=== PATIENT | male | born 1965 | race African-American/Black ===

== ENCOUNTER 2018-01-04 01:02 | Emergency (ER) | payer SELFPAY ==
--- NOTE | 2018-01-04 03:21 | PDOC ---
Attending Attestation - HPI HPI: 01/04/18 04:22 The patient is a 52 year old male, with no significant past medical history, who presents to the emergency department with headache, neck pain and stiffness today while driving. He states he developed difficulty moving his neck which progressed to slightly blurred vision and a diffuse posterior headache, He states the headache comes and goes. He states his neck pain feels like intermittent spasms which makes his pain jump from a 3/10 to a 10/10. He also reports momentary facial numbness and tingling. The patient denies chest pain, shortness of breath, and dizziness. The patient denies fever, chills, nausea, vomit, diarrhea and constipation. The patient denies dysuria, frequency, urgency and hematuria. Allergies: NKDA - Physicial Exam PE: 01/04/18 04:23 GENERAL: The patient is in no acute distress. HEAD: Normal with no signs of trauma. EYES: PERRLA, EOMI, sclera anicteric, conjunctiva clear. ENT: Ears normal, nares patent, oropharynx clear without exudates. Moist mucous membranes. NECK: Normal range of motion, supple without lymphadenopathy, JVD, or masses. LUNGS: Breath sounds equal, clear to auscultation bilaterally. No wheezes, and no crackles. HEART:Regular rate and rhythm, normal S1 and S2 without murmur, rub or gallop. ABDOMEN: Soft, nontender, normoactive bowel sounds. No guarding, no rebound. No masses palpable. EXTREMITIES: Normal range of motion, no edema. No clubbing or cyanosis. No erythema, or tenderness. NEUROLOGICAL: Cranial nerves II through XII grossly intact. Normal speech. No focal neurological deficits. MUSCULOSKELETAL: (+) limited ROM of neck secondary to pain. PAraspinal cervical muscle ttp. no CVA tenderness SKIN: Warm, Dry, normal turgor, no rashes or lesions noted. - Medical Decision Making 01/04/18 04:24 Documentation prepared by Dolores Jerez, acting as medical care manager for Rita Leger MD <Dolores Jerez - Last Filed: 01/04/18 04:22> - Resident Resident Name: Kd Coombs - ED Attending Attestation I have performed the following: I have examined & evaluated the patient, The case was reviewed & discussed with the resident, I agree w/resident's findings & plan, Exceptions are as noted - Medical Decision Making 52 yo m presenting to the ER with what appears to be muscular neck pain no trauma no rigidity or fever to suggest meningitis pain present since this afternoon Vertebral artery dissection possible Likely muscle strain CT performed and demonstrate no pathology Labs wnl Pt improved with robaxin Will discharge to home Follow up with pmd Return to the ER immediately for any concerns or complaints <Rita Leger - Last Filed: 01/05/18 05:26>
--- NOTE | 2018-01-04 03:24 | PDOC ---
History of Present Illness - General History Source: Patient Exam Limitations: No Limitations <Dolores Jerez - Last Filed: 01/04/18 04:21> - History of Present Illness Initial Comments: 01/04/18 04:35 The patient is a 52 year old male with no significant PMH who presents for evaluation of headache and neck pain. The patient notes onset of left sided neck pain with radiation into his head with progression to a left sided headache earlier today prompting his presentation to the ED for further evaluation. He noted some left facial tingling as well, but otherwise denies fevers, chills, SOB, chest pain, nausea, vomiting, abdominal pain, weakness, or changes with urination or bowel movements. <Kd Coombs - Last Filed: 01/06/18 09:02> - General Stated Complaint: DIZZINESS/HEADACHE Time Seen by Provider: 01/04/18 02:47 Past History <Dolores Jerez - Last Filed: 01/04/18 04:21> <Kd Coombs - Last Filed: 01/06/18 09:02> - Past Medical History Allergies/Adverse Reactions: Allergies Allergy/AdvReac Type Severity Reaction Status Date / Time No Known Allergies Allergy Verified 01/04/18 03:30 Home Medications: Ambulatory Orders Methocarbamol [Robaxin -] 500 mg PO BID #14 tablet 01/04/18 Review of Systems - Review of Systems Able to Perform ROS?: Yes <Dolores Jerez - Last Filed: 01/04/18 04:21> - Review of Systems Comments:: 01/04/18 04:38 Constitutional: No fevers, chills, fatigue, malaise HEENT: Neck pain. No Rhinorrhea, nasal congestion, visual changes Cardiovascular: No chest pain, syncope, palpitations, lightheadedness Respiratory: No Cough, SOB, Hemoptysis, Gastrointestinal: No Abdominal pain, Nausea, Vomiting, Constipation, Diarrhea, Melena Genitourinary: No Dysuria, Frequency, Urgency, Hesitancy, Hematuria, Flank pain Musculoskeletal: No Myalgia, arthralgia Skin: No rashes, itching, bruising, pallor Neurologic: Headache, tingling, No Dizziness, Weakness, Psychiatric: No Hallucinations. No SI or HI <Kd Coombs - Last Filed: 01/06/18 09:02> *Physical Exam - Vital Signs Last Vital Signs Temp Pulse Resp BP Pulse Ox 97.5 F L 71 19 155/90 97 01/04/18 01:15 01/04/18 01:15 01/04/18 01:15 01/04/18 01:15 01/04/18 01:15 <Dolores Jerez - Last Filed: 01/04/18 04:21> - Physical Exam Comments: 01/04/18 04:38 General Appearance: Nourished. No Apparent Distress HEENT: EOMI, JASON. No Pharyngeal Erythema, Tonsillar Exudate, Tonsillar Erythema Neck: Reproducible tenderness to palpation along the left parasinal neck muscles. No Cervical Lymphadenopathy Respiratory/Chest: Lungs Clear, Normal Breath Sounds. No Crackles, Rales, Rhonchi, Wheezing Cardiovascular: Regular Rhythm, Regular Rate. No Murmur, Gallops, Rubs Gastrointestinal/Abdominal: Normal Bowel Sounds, Soft. No Guarding, Rebound, Tenderness Musculoskeletal: No CVA Tenderness Extremity: Normal Capillary Refill Integumentary: Normal Color, Dry, Warm Neurologic: environmental lead II-XII NML intact, Fully Oriented, Alert, Normal Mood/Affect, Normal Response, Motor Strength 5/5. Normal Finger to Nose and Heel to [place] <Kd Coombs - Last Filed: 01/06/18 09:02> ED Treatment Course - LABORATORY CBC & Chemistry Diagram: 01/04/18 04:30 01/04/18 04:30 <Kd Coombs - Last Filed: 01/06/18 09:02> Medical Decision Making - Medical Decision Making 01/04/18 04:39 The patient is a 52 year old male with no significant PMH who presents for evaluation of headache and neck pain. Differential includes but is not limited to: Musculoskeletal, Migraine, Vetebral dissection, infectious, metabolic derangement. Given the patient's history and physical exam, we will obtain a cbc, cmp, head and neck ct with and without iv contrast to evaluate further. We will treat in the meantime with iv fluids, iv tylenol, and robaxin and continue to monitor and reassess while here in the ED. 01/04/18 07:01 CBC, cmp are unremarkable. Head and neck CT scans are unremarkable as preliminarily read by our subcontracts manager radiologist. The patient reports improvement in his symptoms. We are comfortable discharging the patient home with neurology and primary care provider follow up. We discussed the results, plan, and return precautions with the patient who voiced understanding and is agreeable with the plan. <Kd Coombs - Last Filed: 01/06/18 09:02> *DC/Admit/Observation/Transfer <Dolores Jerez - Last Filed: 01/04/18 04:21> - Discharge Dispostion Decision to Admit order: No <Kd Coombs - Last Filed: 01/06/18 09:02> Diagnosis at time of Disposition: Headache Qualifiers: Headache type: unspecified Headache chronicity pattern: unspecified pattern Intractability: not intractable Qualified Code(s): R51 - Headache - Discharge Dispostion Disposition: HOME Condition at time of disposition: Fair - Prescriptions Prescriptions: Methocarbamol [Robaxin -] 500 mg PO BID #14 tablet - Referrals Referrals: Adele Honeycutt MD [Primary Care Provider] - Stiven Meyer DO [Staff Physician] - - Patient Instructions Printed Discharge Instructions: DI for Headache Additional Instructions: Please return to the ER if you experience concerning or worsening symptoms including worsening headache or weakness. Your lab results and CT scans were normal here in the ER. Please call to schedule a follow up appointment with our neurology specialist within 2-3 days to discuss your ER visit and further management of your symptoms. - Post Discharge Activity
[2018-01-04 03:30] VITALS: BP 155/90; PULSE 71; TEMP 97.5; BMI 28.3
[2018-01-04] MEDS ORDERED: METHOCARBAMOL 500 MG TABLET PO ONE (03:40)
[2018-01-04] MEDS ORDERED: ACETAMINOPHEN 1000 MG/100 ML VIAL (NON FORMULARY) IVPB ONE (03:40)
[2018-01-04] MEDS ORDERED: SODIUM CHLORIDE 1,000 ML IV STA (03:40)
[2018-01-04] MEDS ORDERED: ACETAMINOPHEN INJECTION 100 ML IVPB ONE (04:21)
[2018-01-04] MEDS ORDERED: METHOCARBAMOL 500 MG TABLET ONE (04:22)
[2018-01-04 04:39] LABS: EOS % 0.1 % (0-4.5); HEMATOCRIT 42.2 % (35.4-49); HEMOGLOBIN 14.3 GM/dL (11.7-16.9); LYMPH % 19.8 % (8-40); MCH 29.7 pg (25.7-33.7); MEAN CELL VOLUME 87.4 fl (80-96); MEAN PLT VOLUME 8.7 fl (7.5-11.1); MONO % 5.9 % (3.8-10.2); NEUT % 73.2 % (42.8-82.8); PLATELET COUNT 216 K/MM3 (134-434); RBC 4.82 M/mm3 (4.00-5.60); RDW 13.7 % (11.9-15.9); WHITE BLOOD COUNT 6.1 K/mm3 (4.0-10.0)
[2018-01-04 05:05] LABS: ALBUMIN 3.8 g/dl (3.4-5.0); ANION GAP 7 MMOL/L (8-16); BILIRUBIN,TOTAL 0.2 mg/dL (0.2-1.0); BLOOD UREA NITROGEN 9 mg/dL (7-18); CALCIUM 8.3 mg/dL (8.5-10.1); CHLORIDE 105 mmol/L (98-107); CO2 29 mmol/L (21-32); CREATININE 0.9 mg/dL (0.7-1.3); GLUCOSE,RANDOM 109 mg/dL (74-106); SGPT/ALT 36 U/L (12-78); SODIUM 141 mmol/L (136-145); TOT PROT 7.5 g/dl (6.4-8.2)
[2018-01-04 05:06] LABS: ALK PHOS 96 U/L (45-117)
[2018-01-04 05:19] LABS: POTASSIUM 3.7 mmol/L (3.5-5.1); SGOT/AST 26 U/L (15-37)
== END 2018-01-04 07:30 | disposition home or self-care (01) ==
LOC: JER 01:02
PROC: 3E033NZ Introduction of Analgesics, Hypnotics, Sedatives into Peripheral Vein, Percutaneous Approach (ICD-10-PCS; principal; 2018-01-04)
PROC: 3E0337Z Introduction of Electrolytic and Water Balance Substance into Peripheral Vein, Percutaneous Approach (ICD-10-PCS; 2018-01-04)
DX: R51 Headache (principal)
CPT/HCPCS: 36415; 70450-TC; 70496-TC; 70498-TC; 80053; 85025; 99282-25; J0131; J7030

== ENCOUNTER 2021-08-28 00:03 | Emergency (ER) | payer OTHER ==
[2021-08-28 00:29] VITALS: BP 152/90; PULSE 75; TEMP 97.6; BMI 29.9
== END 2021-08-28 01:59 | disposition home or self-care (01) ==
LOC: JER 00:03
DX: M79.652 Pain in left thigh (principal); M25.562 Pain in left knee; V49.40XA Driver injured in collision with unspecified motor vehicles in traffic accident, initial encounter
CPT/HCPCS: 72170-TC-FY; 73502-TC-LT-FY; 73552-TC-LT-FY; 73560-TC-LT-FY; 73560-TC-RT-FY; 99284-25

== ENCOUNTER 2021-09-08 17:40 | Emergency (ER) | payer OTHER ==
[2021-09-08 18:01] VITALS: TEMP 97.9; BMI 28.3
[2021-09-08 18:26] VITALS: BP 117/83; PULSE 86
[2021-09-08] MEDS ORDERED: SODIUM CHLORIDE 0.9% 500 ML INFUS.BAG IV ONE ×2 (19:33→20:41)
[2021-09-08 19:50] LABS: BASO % 0.3 % (0-2.0); HEMATOCRIT 46.7 % (35.4-49); HEMOGLOBIN 15.7 GM/dL (11.7-16.9); LYMPH % 19.4 % (8-40); MCH 29.5 pg (25.7-33.7); MCHC 33.7 g/dl (32.0-35.9); MEAN CELL VOLUME 87.5 fl (80-96); MEAN PLT VOLUME 9.4 fl (7.5-11.1); MONO % 16.6 % (3.8-10.2); NEUT % 63.7 % (42.8-82.8); PLATELET COUNT 244 10^3/uL (134-434); RBC 5.34 M/mm3 (4.00-5.60); RDW 14.8 % (11.9-15.9); WHITE BLOOD COUNT 8.4 K/mm3 (4.0-10.0)
[2021-09-08 20:10] LABS: CALCIUM 9.2 mg/dL (8.5-10.1)
[2021-09-08 20:11] LABS: ALBUMIN 3.5 g/dl (3.4-5.0)
[2021-09-08 20:16] LABS: BILIRUBIN,TOTAL 0.4 mg/dL (0.2-1); TOT PROT 7.3 g/dl (6.4-8.2)
[2021-09-08 20:18] LABS: CREATININE 1.7 mg/dL (0.55-1.3)
[2021-09-08] MEDS ORDERED: POTASSIUM CHLORIDE TABS 20 MEQ TABLET.ER (FP) PO ONE ×2 (20:41→20:42)
[2021-09-08 23:40] LABS: CALCIUM 7.9 mg/dL (8.5-10.1)
[2021-09-08 23:41] LABS: BLOOD UREA NITROGEN 32.1 mg/dL (7-18)
[2021-09-08 23:44] LABS: CREATININE 1.1 mg/dL (0.55-1.3)
== END 2021-09-09 00:08 | disposition home or self-care (01) ==
LOC: JER 17:40
DX: R19.7 Diarrhea, unspecified (principal)
CPT/HCPCS: 36415; 80048; 80053; 82272; 85025; 99284-25

== ENCOUNTER 2021-09-25 22:01 | Inpatient (IN) | payer OTHER ==
[2021-09-25 22:09] VITALS: BMI 27.4
[2021-09-25 23:03] LABS: HEMOGLOBIN 11.3 GM/dL (11.7-16.9); MCH 29.2 pg (25.7-33.7); MCHC 33.3 g/dl (32.0-35.9); MEAN CELL VOLUME 87.8 fl (80-96); MEAN PLT VOLUME 7.3 fl (7.5-11.1); PLATELET COUNT 402 10^3/uL (134-434); RBC 3.87 M/mm3 (4.00-5.60); RDW 13.7 % (11.9-15.9); WHITE BLOOD COUNT 6.7 K/mm3 (4.0-10.0)
[2021-09-25 23:24] LABS: CALCIUM 8.6 mg/dL (8.5-10.1)
[2021-09-25 23:25] LABS: BLOOD UREA NITROGEN 11.2 mg/dL (7-18)
[2021-09-25 23:28] LABS: CREATININE 1.1 mg/dL (0.55-1.3); URIC ACID 3.8 mg/dL (2.6-7.2)
[2021-09-26] MEDS ORDERED: ACETAMINOPHEN 325 MG TABLET (FP) PO PRN (02:59)
[2021-09-26 07:43] LABS: BASO % 0.5 % (0-2.0); EOS % 0.4 % (0-4.5); HEMATOCRIT 32.5 % (35.4-49); HEMOGLOBIN 10.9 GM/dL (11.7-16.9); LYMPH % 33.4 % (8-40); MCH 29.2 pg (25.7-33.7); MCHC 33.5 g/dl (32.0-35.9); MEAN CELL VOLUME 87.4 fl (80-96); MEAN PLT VOLUME 7.9 fl (7.5-11.1); NEUT % 50.7 % (42.8-82.8); PLATELET COUNT 394 10^3/uL (134-434); RBC 3.72 M/mm3 (4.00-5.60); RDW 13.7 % (11.9-15.9); RETICULOCYTES 0.57 % (0.5-1.5); WHITE BLOOD COUNT 6.3 K/mm3 (4.0-10.0)
[2021-09-26 07:59] LABS: CALCIUM 8.6 mg/dL (8.5-10.1)
[2021-09-26 08:00] LABS: ALBUMIN 2.6 g/dl (3.4-5.0); BLOOD UREA NITROGEN 10.2 mg/dL (7-18); MAGNESIUM 2.4 mg/dL (1.8-2.4)
[2021-09-26 08:01] LABS: EPI CELLS >36 /uL (0-25.1); HYALINE CASTS 48 /uL (0-3.1); PH,URINE 6.5 (5.0-8.0); URINE APPEARANCE CLEAR; URINE BACTERIA 12 /uL (0-1359); URINE BILIRUBIN NEGATIVE (NEGATIVE); URINE COLOR YELLOW; URINE GLUCOSE (UA) NEGATIVE (NEGATIVE); URINE KETONE NEGATIVE (NEGATIVE); URINE LEUK ESTERASE 1+ (NEGATIVE); URINE NITRITE NEGATIVE (NEGATIVE); URINE PROTEIN 1+ (NEGATIVE); URINE RBC 21 /uL (0-23.9); URINE UROBILINOGEN 0.2 mg/dL (0.2-1.0); URINE WBC 197 /uL (0-25.8)
[2021-09-26 08:04] LABS: BILIRUBIN,TOTAL 0.5 mg/dL (0.2-1); TOT PROT 6.4 g/dl (6.4-8.2)
[2021-09-26] MEDS ORDERED: ENOXAPARIN NA (PORCINE) 40 MG/0.4 ML DISP.SYRIN SQ ONE (09:50)
[2021-09-26] MEDS ORDERED: HYDROCHLOROTHIAZIDE 25 MG TABLET (FP) ONE (09:50)
[2021-09-26] MEDS ORDERED: LOSARTAN POTASSIUM 50 MG TABLET ONE (09:50)
[2021-09-26] MEDS ORDERED: amLODIPine BESYLATE 5 MG TABLET (FP) ONE (09:50)
[2021-09-26] MEDS ORDERED: LOSARTAN POTASSIUM 50 MG TABLET PO SCH (10:00)
[2021-09-26] MEDS ORDERED: amLODIPine BESYLATE 5 MG TABLET (FP) PO SCH (10:00)
[2021-09-26] MEDS ORDERED: ENOXAPARIN NA (PORCINE) 40 MG/0.4 ML DISP.SYRIN SQ SCH (10:00)
[2021-09-26] MEDS ORDERED: HYDROCHLOROTHIAZIDE 12.5 MG CAPSULE (FP) PO SCH (10:00)
[2021-09-26] MEDS ORDERED: PATIENT'S OWN MEDICATION (NON-FORMULARY) (Losartan/Hydrochlorothiazide [Losartan-Hctz 100- PO SCH (10:00)
[2021-09-26] MEDS ORDERED: metroNIDAZOLE 250 MG TABLET PO SCH (11:01)
[2021-09-26] MEDS ORDERED: metroNIDAZOLE 250 MG TABLET ONE (11:30)
[2021-09-26 12:12] VITALS: BP 123/79; PULSE 78; TEMP 98.3
== END 2021-09-26 15:11 | disposition home or self-care (01) | DRG 351 ==
LOC: JER 22:01 → JERBED 09-26 01:47 → OBSVTOIN 09-26 02:59
PROVIDERS: ADMIT Internal Medicine; ATTEND Nurse Practitioner Family
DX: M25.571 Pain in right ankle and joints of right foot (principal); I10 Essential (primary) hypertension; Z86.16 Personal history of COVID-19; D64.9 Anemia, unspecified
CPT/HCPCS: 36415; 73610-TC-RT-FY; 73630-TC-RT-FY; 80048; 80053; 81003; 82728; 83036; 83540; 83550; 83735; 84550; 85025; 85027; 85045; 85651; 86038; 86140; 86431; 86618; 93005; 93010; 93971-TC; 99285-25; C9803-CS; G0378; U0003; U0005

== ENCOUNTER 2021-12-10 17:51 | Emergency (ER) | payer OTHER ==
[2021-12-10 17:59] VITALS: BP 138/89; PULSE 73; RESP 18; TEMP 98.2; BMI 28.6
[2021-12-10] MEDS ORDERED: MECLIZINE HCL 25 MG TABLET (FP) PO ONE (19:32)
[2021-12-10] MEDS ORDERED: MECLIZINE HCL 25 MG TABLET (FP) ONE (19:50)
== END 2021-12-10 21:07 | disposition home or self-care (01) ==
LOC: JER 17:51
DX: R42 Dizziness and giddiness (principal); R21 Rash and other nonspecific skin eruption
CPT/HCPCS: 36415; 87255; 87593; 93005; 93010; 99284-25